=== PATIENT | female | born 1990 | race Caucasian/White ===

== ENCOUNTER → 2018-01-08 | Outpatient (CLI) | payer OTHER ==
[~2018-01-08] MED LIST: ACET325 PO; ALBU8HFA2 INH; ALBU90OI INH; ALBU90OI6 INH; AMOCLA875 PO; AMOX500 PO; ANTIBIOTIC PO; AZIT250 PO; Augmentin 875-1 EACH PO; BUPR100 PO; Bactrim Ds Tab1 EACH PO; CEPH500 PO; CHLGLU.12S MT; CIPDEXSU OT; CLIN150 PO; CODGUAEL PO; CYCL10 PO; Cyclobenzaprine5 MG PO; DIPH50 PO; DOXY100 PO; ERYT.5TO OS; GABA300 PO; GUAIASORB DM L118 ML PO; HYDACE5 PO; IBUP400 PO; IBUP600 PO; IBUP800 PO; MECL25 PO; MEDR10 PO; METO10 PO; METPRE4DP PO; MODA200 PO; MULVITMINE PO; NAPR220 PO; NAPR500 PO; NAPR550 PO; NEOPOLHCSU OT; NEOPOLHYD OP; OXYACE5T PO; PENVK500 PO; PHENA200 PO; PRED10 PO; PROACE100 PO; PROM25 PO; Percocet 5-3251 EACH PO; Pyridium100 MG PO; RXCEPH500 PO; RXCLIN PO; RXCODACET PO; RXCODGUASY PO; RXCYCL10 PO; RXHYDACE PO; RXNAPNA550 PO; RXNEOPOLHC AU; RXONDA4ODT MM; RXOXYACE PO; RXPENVK250 PO; RXTRAM50 PO; SULTRIDS PO; TRAACE PO; TRAM50; TRAM50 PO; TRAZ150T57 PO; Ventolin/Prove6.7 GM; Verotin-Gr Cap1 EACH PO; [UNRECOGNIZED DRUG - OTHER]
[2018-01-08 09:04] LABS: Bilirubin, Urine Neg (Neg); Blood, Urine 3+ (Neg); Glucose Qualitative, Urine Neg (Neg); Ketones, Urine Neg (Neg); Leukocyte Esterase, Urine Neg (Neg); Nitrite, Urine Neg (Neg); Protein, Urine 1+ (Neg); Urobilinogen, Urine NORM (Normal)
[2018-01-08 09:12] LABS: Appearance, Urine Clear (Clear); Color, Urine Yellow (P-Yellow)
[2018-01-08 09:13] LABS: Bacteria Mod /hpf; Red Blood Cells, Urine 0-2 /hpf (0-2); Squamous Epithelial Cells Many /hpf (Few); White Blood Cells, Urine Not Seen /hpf (0-5)
== END ==
LOC: LAB SHORT 08:53
PROVIDERS: Physician Assistant
DX: R31.9 Hematuria, unspecified (principal)
CPT/HCPCS: 81001

== ENCOUNTER 2020-12-05 15:56 | Emergency (ER) | payer OTHER ==
[~2020-12-05] VITALS: Ht 154.9 cm; Wt 81.7 kg
[2020-12-05 18:18] LABS: BASOPHILS ABSOLUTE AUTO 0.07 K/mm3 (0.00-0.23); BASOPHILS PERCENT AUTO 1 % (0-2); EOSINOPHILS ABSOLUTE AUTO 0.05 K/mm3 (0.00-0.68); EOSINOPHILS PERCENT AUTO 0 % (0-6); Hematocrit 43.5 % (33.0-51.0); Hemoglobin 13.9 g/dL (11.5-16.0); IMMATURE GRAN ABSOLUTE AUTO 0.07 K/mm3 (0.00-0.10); IMMATURE GRAN PERCENT AUTO 1 % (0-1); LYMPHOCYTES ABSOLUTE AUTO 2.17 K/mm3 (0.84-5.20); LYMPHOCYTES PERCENT AUTO 14 % (21-46); MONOCYTES ABSOLUTE AUTO 0.73 K/mm3 (0.16-1.47); MONOCYTES PERCENT AUTO 5 % (4-13); Mean Corpuscular Volume 88 fL (80-100); Mean Platelet Volume 9.6 fL (9.1-12.4); NEUTROPHILS ABSOLUTE AUTO 12.14 K/mm3 (1.96-9.15); NEUTROPHILS PERCENT AUTO 80 % (41-73); Platelet Count 273 K/mm3 (150-400); RDW Coefficient Variation 12.3 % (11.7-14.2); RDW Standard Deviation 39.7 fL (35.1-46.3); Red Blood Cell Count 4.96 M/mm3 (3.80-5.20); White Blood Cell Count 15.23 K/mm3 (4.00-11.30)
[2020-12-05 18:31] LABS: Source, Urine Clean Catch
[2020-12-05 18:34] LABS: Alanine Aminotransfer (ALT/SGP 30 U/L (12-78); Albumin, Blood 4.3 g/dL (3.4-5.0); Alk Phos 126 U/L (50-136); Anion Gap 9 mmol/L (6-16); Aspartate Aminotrans (AST/SGOT 27 U/L (12-37); Bilirubin, Total 0.3 mg/dL (0.1-1.0); Blood Urea Nitrogen 8 mg/dL (8-24); Bun/Creatinine Ratio 13.1 (12.0-20.0); CO2, Blood 23 mmol/L (21-32); Calcium, Blood 9.3 mg/dL (8.5-10.1); Chloride, Blood 107 mmol/L (98-108); Creatinine, Blood 0.61 mg/dL (0.40-1.00); Globulin, Blood 4.1 g/dL (2.2-4.0); Glomerular Filtration Rate >60 (60-); Glucose, Blood 81 mg/dL (70-99); Potassium, Blood 3.9 mmol/L (3.5-5.5); Sodium, Blood 139 mmol/L (136-145); Total Protein, Blood 8.4 g/dL (6.4-8.2)
[2020-12-05 18:39] LABS: Appearance, Urine Clear (Clear); Bilirubin, Urine Neg (Neg); Blood, Urine 5+ (Neg); Color, Urine Yellow (P-Yellow); Glucose Qualitative, Urine Neg (Neg); Ketones, Urine Neg (Neg); Leukocyte Esterase, Urine 1+ (Neg); Nitrite, Urine Neg (Neg); Protein, Urine Neg (Neg); Urobilinogen, Urine NORM (Normal)
[2020-12-05 18:55] LABS: Bacteria Few /hpf; Squamous Epithelial Cells Rare /hpf (Few); White Blood Cells, Urine 0-2 /hpf (0-5)
== END 2020-12-05 19:33 | disposition home or self-care (01) ==
LOC: ER 15:56
PROVIDERS: Physician Assistant
DX: L03.317 Cellulitis of buttock (principal); R10.11 Right upper quadrant pain; R10.12 Left upper quadrant pain; R19.7 Diarrhea, unspecified; F17.210 Nicotine dependence, cigarettes, uncomplicated
CPT/HCPCS: 36415; 74176; 80053; 81001; 83690; 85025; 87086; 99284-25; J7030

== ENCOUNTER 2023-02-26 19:55 | Emergency (ER) | payer OTHER ==
[~2023-02-26] VITALS: Ht 160 cm; Wt 68.0 kg
[2023-02-26] MEDS ORDERED: GABA600 PO (21:24)
== END 2023-02-26 22:02 | disposition home or self-care (01) ==
LOC: ER 19:55
DX: Z76.0 Encounter for issue of repeat prescription (principal); J45.909 Unspecified asthma, uncomplicated; F17.210 Nicotine dependence, cigarettes, uncomplicated; Z88.5 Allergy status to narcotic agent; Z88.8 Allergy status to other drugs, medicaments and biological substances; Z79.899 Other long term (current) drug therapy
CPT/HCPCS: A9270

== ENCOUNTER 2023-03-07 11:20 | Emergency (ER) | payer OTHER ==
[~2023-03-07] VITALS: Ht 154.9 cm; Wt 59.0 kg
[~2023-03-07 11:20] MED LIST changes: +GABA600 PO
[2023-03-07 13:48] LABS: Source, Urine Clean Catch
[2023-03-07 13:52] LABS: Bilirubin, Urine Neg (Neg); Blood, Urine 2+ (Neg); Glucose Qualitative, Urine Neg (Neg); Ketones, Urine Neg (Neg); Leukocyte Esterase, Urine Neg (Neg); Nitrite, Urine Neg (Neg); Protein, Urine Neg (Neg); Specific Gravity, Urine 1.015 (1.003-1.022); Urobilinogen, Urine NORM (Normal)
[2023-03-07 13:57] LABS: Appearance, Urine Clear (Clear); Color, Urine Yellow (P-Yellow)
[2023-03-07 14:00] LABS: Bacteria Rare /hpf; Squamous Epithelial Cells Few /hpf (Few); White Blood Cells, Urine 0-2 /hpf (0-5)
[2023-03-07 14:09] LABS: U Amphetamine Screen Not Detected; U Barbituate Screen Not Detected; U Benzodiazapine Screen Not Detected; U Buprenorphine Screen Not Detected; U Cannabinoids Screen Not Detected; U Cocaine Screen Not Detected; U Methadone Screen DETECTED; U Methamphetamine Screen Not Detected; U Opiates Screen Not Detected; U Oxycodone Screen Not Detected; U Phencyclidine Screen Not Detected; U Propoxyphene Screen Not Detected
[2023-03-07] MEDS ORDERED: METR500 PO (15:20)
[2023-03-07] MEDS ORDERED: DOXY100 PO (15:20)
[2023-03-07 17:36] LABS: Candida species (DNA Probe) Negative (NEGATIVE); G. vaginalis (DNA Probe) Negative (NEGATIVE); T. vaginalis (DNA Probe) Negative (NEGATIVE)
[2023-03-09 01:10] LABS: CHLAMYDIA TRACHOMATIS, NAA Negative (Negative)
== END 2023-03-07 16:38 | disposition home or self-care (01) ==
LOC: ER 11:20
PROVIDERS: Emergency Medicine
DX: T76.21XA Adult sexual abuse, suspected, initial encounter (principal); S96.912A Strain of unspecified muscle and tendon at ankle and foot level, left foot, initial encounter; S60.211A Contusion of right wrist, initial encounter; J45.909 Unspecified asthma, uncomplicated; G43.909 Migraine, unspecified, not intractable, without status migrainosus; F17.210 Nicotine dependence, cigarettes, uncomplicated; X58.XXXA Exposure to other specified factors, initial encounter
CPT/HCPCS: 73110; 73610; 81001; 81025; 87480; 87510; 87660; 96372; 99285-25; A9270; J0696

== ENCOUNTER 2023-03-26 09:53 | Emergency (ER) | payer OTHER ==
[~2023-03-26] VITALS: Ht 154.9 cm; Wt 61.2 kg
[~2023-03-26 09:53] MED LIST changes: +METR500 PO
[2023-03-26 10:45] LABS: Source, Urine Voided
[2023-03-26 10:50] LABS: Appearance, Urine Hazy (Clear); Bilirubin, Urine Neg (Neg); Blood, Urine 5+ (Neg); Color, Urine Yellow (P-Yellow); Glucose Qualitative, Urine Neg (Neg); Ketones, Urine Neg (Neg); Leukocyte Esterase, Urine 1+ (Neg); Nitrite, Urine Neg (Neg); Protein, Urine Neg (Neg); Urobilinogen, Urine NORM (Normal)
[2023-03-26 10:54] LABS: BASOPHILS ABSOLUTE AUTO 0.04 K/mm3 (0.00-0.23); BASOPHILS PERCENT AUTO 1 % (0-2); EOSINOPHILS ABSOLUTE AUTO 0.04 K/mm3 (0.00-0.68); EOSINOPHILS PERCENT AUTO 1 % (0-6); Hematocrit 41.6 % (33.0-51.0); Hemoglobin 13.6 g/dL (11.5-16.0); IMMATURE GRAN ABSOLUTE AUTO 0.01 K/mm3 (0.00-0.10); IMMATURE GRAN PERCENT AUTO 0 % (0-1); LYMPHOCYTES ABSOLUTE AUTO 1.91 K/mm3 (0.84-5.20); LYMPHOCYTES PERCENT AUTO 27 % (21-46); MONOCYTES ABSOLUTE AUTO 0.59 K/mm3 (0.16-1.47); MONOCYTES PERCENT AUTO 8 % (4-13); Mean Corpuscular HGB 28.9 pg (26.0-34.0); Mean Corpuscular HGB Conc 32.7 g/dL (31.5-36.5); Mean Corpuscular Volume 88 fL (80-100); Mean Platelet Volume 9.8 fL (9.1-12.4); NEUTROPHILS PERCENT AUTO 63 % (41-73); Platelet Count 326 K/mm3 (150-400); RDW Coefficient Variation 12.4 % (11.7-14.2); Red Blood Cell Count 4.71 M/mm3 (3.80-5.20); White Blood Cell Count 6.99 K/mm3 (4.00-11.30)
[2023-03-26 10:57] LABS: White Blood Cells, Urine 0-2 /hpf (0-5)
[2023-03-26 10:58] LABS: Bacteria Mod /hpf; Mucus Light (0-Heavy); Squamous Epithelial Cells Few /hpf (Few)
[2023-03-26 11:14] LABS: Albumin, Blood 3.8 g/dL (3.4-5.0); Albumin/Globulin Ratio 1.1 (0.8-1.8); Bilirubin, Total 0.3 mg/dL (0.1-1.0); Bun/Creatinine Ratio 22.6 (12.0-20.0); Calcium, Blood 8.9 mg/dL (8.5-10.1); Creatinine, Blood 0.49 mg/dL (0.40-1.00); Globulin, Blood 3.5 g/dL (2.2-4.0); Total Protein, Blood 7.3 g/dL (6.4-8.2)
[2023-03-26] MEDS ORDERED: IBUP800 PO (12:10)
[2023-03-26 12:18] VITALS: BP 121/74
== END 2023-03-26 12:19 | disposition home or self-care (01) ==
LOC: ER 09:53
PROVIDERS: Emergency Medicine
DX: N23 Unspecified renal colic (principal); J45.909 Unspecified asthma, uncomplicated; G43.909 Migraine, unspecified, not intractable, without status migrainosus; F17.210 Nicotine dependence, cigarettes, uncomplicated; Z91.041 Radiographic dye allergy status; Z91.040 Latex allergy status; Z88.5 Allergy status to narcotic agent; Z79.899 Other long term (current) drug therapy; Z87.442 Personal history of urinary calculi
CPT/HCPCS: 36415; 71045; 80053; 81001; 84703; 85025; 87086; 96374; 99284-25

== ENCOUNTER 2023-11-20 13:24 | Emergency (ER) | payer OTHER ==
[~2023-11-20] VITALS: Ht 154.9 cm; Wt 63.5 kg
[2023-11-20 14:45] VITALS: BP 136/78
[2023-11-20] MEDS ORDERED: NEURONTIN300 MG PO (15:28)
== END 2023-11-20 14:49 | disposition home or self-care (01) ==
LOC: ER 13:24
DX: M25.562 Pain in left knee (principal); G89.29 Other chronic pain; J45.909 Unspecified asthma, uncomplicated; Z88.5 Allergy status to narcotic agent; Z88.8 Allergy status to other drugs, medicaments and biological substances; Z91.040 Latex allergy status; Z87.81 Personal history of (healed) traumatic fracture
CPT/HCPCS: 73560-LT; 99283-25

== ENCOUNTER 2025-03-17 15:26 | Emergency (ER) | payer OTHER ==
[~2025-03-17] VITALS: Ht 157.5 cm; Wt 56.7 kg
[~2025-03-17 15:26] MED LIST changes: +NEURONTIN300 MG PO
[2025-03-17 19:20] VITALS: BP 121/72
== END 2025-03-17 19:21 | disposition home or self-care (01) ==
LOC: ER 15:26
DX: S00.12XA Contusion of left eyelid and periocular area, initial encounter (principal); F17.210 Nicotine dependence, cigarettes, uncomplicated; J45.909 Unspecified asthma, uncomplicated; Z79.899 Other long term (current) drug therapy; X58.XXXA Exposure to other specified factors, initial encounter
CPT/HCPCS: 70450; 99283-25